=== PATIENT | female | born 1930 | race Caucasian/White ===

== ENCOUNTER 2020-04-27 00:13 | Emergency (ER) | payer OTHER, MEDICAID ==
[~2020-04-27] VITALS: Ht 165.1 cm; Wt 50.0 kg
[~2020-04-27 00:13] MED LIST: FLUO10CA26 PO; HYDR25TA PO; LISI2.5T47 PO; METF-415 PO; TRAZ-251 PO
[2020-04-27] MEDS ORDERED: SODIUM CHLORIDE 0.9% 1,000 ML IV ONE (01:15)
[2020-04-27 01:24] LABS: BASOPHILS % 0.3 % (0.0-2.0); EOSINOPHILS % 3.7 % (0.0-5.0); HEMATOCRIT. 33.6 % (36.0-48.0); HEMOGLOBIN. 11.2 g/dL (12.0-16.0); LYMPHOCYTES % 35.7 % (20.0-50.0); MEAN CORPUSCULAR HEMOGLOBIN 29.7 pg (28.0-32.0); MEAN CORPUSCULAR VOLUME 89.4 fL (81.0-99.0); MEAN PLATELET VOLUME 7.8 fl (7.4-10.4); MONOCYTES % 6.8 % (2.0-8.0); NEUTROPHILS % 53.5 % (40.0-76.0); PLATELET 238 x1000/uL (130-400); RED BLOOD CELL COUNT 3.76 mill/uL (4.2-5.4); RED CELL DISTRIBUTION WIDTH 13.7 % (11.6-14.6)
[2020-04-27 01:28] LABS: CHLORIDE 100 mEq/L (98-107)
[2020-04-27 01:33] LABS: CLARITY URINE CLEAR (CLEAR); COLOR URINE YELLOW (YELLOW); KETONES URINE NEGATIVE (NEGATIVE); LEUKOCYTE ESTERASE URINE TRACE (NEGATIVE); NITRITE URINE NEGATIVE (NEGATIVE); OCCULT BLOOD URINE NEGATIVE (NEGATIVE); PROTEIN URINE TRACE (NEGATIVE); SPECIFIC GRAVITY URINE 1.014 (1.005-1.030)
[2020-04-27 01:38] LABS: PROTHROMBIN TIME 10.4 sec (9.6-11.0)
[2020-04-27] MEDS ORDERED: ONDANSETRON HCL 4MG/2ML INJ IV ONE (01:45)
[2020-04-27] MEDS ORDERED: MORPHINE SULFATE 2 MG/ML CPJ (NOT FOR IM USE) IV ONE (01:45)
[2020-04-27 05:25] VITALS: BP 125/68
== END 2020-04-27 07:08 | disposition short-term general hospital (02) ==
LOC: ER 00:13 → EDUNIT# 00:13 → CANBEDREQ 05:47 → ER 07:08
DX: R55 Syncope and collapse (principal); R00.1 Bradycardia, unspecified; S09.8XXA Other specified injuries of head, initial encounter; E11.9 Type 2 diabetes mellitus without complications; I10 Essential (primary) hypertension; X58.XXXA Exposure to other specified factors, initial encounter; Y93.89 Activity, other specified; Y92.9 Unspecified place or not applicable
CPT/HCPCS: 36415; 70450; 71045; 80053; 81003; 83880; 84484; 85025; 85610; 96361; 96374; 96375; 99285; J2270; J2405; J7030